=== PATIENT | male | born 1985 | race Caucasian/White ===

== ENCOUNTER 2019-03-15 16:57 | Inpatient (IN) | payer BC ==
[2019-03-15] MEDS ORDERED: NORMAL SALINE 1000 ML 1,000 ML IV ONE ×2 (17:11→22:39)
[2019-03-15] MEDS ORDERED: PANTOPRAZOLE SODIUM 40 MG VIAL IV ONE ×2 (17:16→17:51)
--- NOTE | 2019-03-15 17:21 | ER Document Report ---
ED General - General Stated Complaint: ALTERED MENTAL STATUS Time Seen by Provider: 03/15/19 17:07 - HPI Notes: Patient is a 33-year-old male with a history of alcohol dependence who presents to the emergency department for evaluation after drinking a bottle of isopropyl alcohol. He states his girlfriend removed all of the alcohol from the home, so he drank out alcohol in an effort to become intoxicated. He denies any suicidal or homicidal ideation. He denies any visual or auditory hallucination. He has been a heavy drinker for quite some time, although he will not elaborate on how long. He denies use of any other illicit drugs. - Related Data Allergies/Adverse Reactions: No Known Allergies Allergy (Unverified 03/15/19 19:35) Past Medical History - General Information source: Patient - Social History Smoking Status: Current Some Day Smoker Frequency of alcohol use: Heavy Family History: Reviewed & Not Pertinent Review of Systems - Review of Systems Constitutional: No symptoms reported EENT: No symptoms reported Cardiovascular: No symptoms reported Respiratory: No symptoms reported Gastrointestinal: No symptoms reported Genitourinary: No symptoms reported Musculoskeletal: No symptoms reported Skin: No symptoms reported Neurological/Psychological: See HPI Physical Exam - Vital signs Vitals: Temp Resp BP Pulse Ox 98.4 F 26 H 152/90 H 97 03/15/19 16:59 03/15/19 16:59 03/15/19 16:59 03/15/19 16:59 - Notes Notes: This is a 33-year-old male, clearly intoxicated with slurred speech, but only minimally disheveled. He appears his stated age, no acute distress. Vital signs reviewed, please refer to chart. Head is normocephalic, atraumatic. Pupils equal round, reactive to light. Neck is supple without meningismus. Heart is regular rate and rhythm. Lungs are clear to auscultation bilaterally. Abdomen is soft, nontender, normoactive bowel sounds throughout. Extremities without cyanosis, clubbing. Posterior calves are nontender. Peripheral pulses are equal. Skin is warm and dry. Course - Re-evaluation Re-evalutation: 03/15/19 17:20 Patient presents emergency department for evaluation after ingestion of his peripheral alcohol. Normal overdose labs obtained, in addition to lactic acid. He does have an abnormal EKG so troponin was added as well. He is given IV fluids. Because of the increased risk of hemorrhagic gastritis, I did administer the patient Protonix as well. Will contact poison control shortly, continue to monitor. 03/15/19 22:41 Patient remains tachycardic here, continues to have altered mental status. I talked to him at length about his binge drinking, he states he does wish to seek out counseling for alcohol abstinence. He remains altered. As a result I did order a CT scan of his head, which came back without significant abnormalities. Poison control was contacted. They requested repeat magnesium, repeat lactate. These are ordered. I spoke with Dr. Carpenter, who will admit the patient for further care. - Vital Signs Vital signs: Temp Pulse Resp BP Pulse Ox 98.4 F 21 H 126/80 H 99 03/15/19 16:59 03/15/19 19:01 03/15/19 19:00 03/15/19 19:01 - Laboratory Result Diagrams: 03/15/19 18:40 03/15/19 18:40 Laboratory results interpreted by me: 03/15/19 03/15/19 03/15/19 18:21 18:40 18:40 WBC 12.1 H [place] % (Auto) 2.1 L Absolute Neuts (auto) 9.3 H Glucose 127 H Lactic Acid Magnesium Urine Protein 30 H Urine Ketones 20 H Salicylates < 1.0 L Acetaminophen < 10 L 03/15/19 03/15/19 18:40 18:40 WBC [place] % (Auto) Absolute Neuts (auto) Glucose Lactic Acid 3.1 H Magnesium 2.4 H Urine Protein Urine Ketones Salicylates Acetaminophen - EKG Interpretation by Me Additional EKG results interpreted by me: 03/15/19 17:21 Sinus tachycardia with a rate of 113 bpm. Normal axis. Borderline prolonged QT interval with a QTC of 483. Nonspecific ST changes, as well as T wave inversions in anteroseptal leads. There are no available studies for comparison. Discharge - Discharge Clinical Impression: Isopropyl alcohol ingestion, Lactic acidosis Alcohol dependence Qualifiers: Substance use status: other alcohol-induced disorder Qualified Code(s): F10.288 - Alcohol dependence with other alcohol-induced disorder Altered mental status Qualifiers: Altered mental status type: unspecified Qualified Code(s): R41.82 - Altered mental status, unspecified Condition: Stable Disposition: ADMITTED INPATIENT Admitting Provider: Jayden (Hospitalist) Unit Admitted: ICU
--- NOTE | 2019-03-15 17:36 | EKG REPORT ---
SEVERITY:- BORDERLINE ECG - SINUS TACHYCARDIA BORDERLINE PROLONGED QT INTERVAL : Confirmed by: Aixa Fitch MD 15-Mar-2019 17:35:36
[2019-03-15] MEDS ORDERED: PANTOPRAZOLE SODIUM 80 MG in NORMAL SALINE 100 ML IV ONE (18:30)
[2019-03-15 18:37] LABS: APPEARANCE,URINE CLEAR; BILIRUBIN,URINE NEGATIVE (NEGATIVE); COLOR,URINE YELLOW; GLUCOSE, URINE NEGATIVE (NEGATIVE); KETONES,URINE 20 mg/dL (NEGATIVE); LEUKOCYTE ESTERASE,URINE NEGATIVE (NEGATIVE); NITRITE,URINE NEGATIVE (NEGATIVE); PROTEIN,URINE 30 mg/dL (NEGATIVE); UROBILINOGEN,URINE NEGATIVE mg/dL (<2.0)
[2019-03-15 18:51] LABS: URINE AMPHETAMINES SCREEN NEGATIVE; URINE BARBITURATES SCREEN NEGATIVE; URINE BENZODIAZEPINES SCREEN NEGATIVE; URINE COCAINE SCREEN NEGATIVE; URINE MARIJUANA (THC) SCREEN NEGATIVE; URINE METHADONE SCREEN NEGATIVE; URINE PHENCYCLIDINE SCREEN NEGATIVE
[2019-03-15 18:53] LABS: ABSOLUTE BASOPHILS # (AUTO) 0.1 10^3/uL (0.0-0.2); ABSOLUTE LYMPHOCYTES (AUTO) 2.5 10^3/uL (0.5-4.7); ABSOLUTE MONOCYTES (AUTO) 0.3 10^3/uL (0.1-1.4); ABSOLUTE NEUT (AUTO) 9.3 10^3/uL (1.7-8.2); BASOPHILS % (AUTO) 0.8 % (0-2); EOSINOPHILS % (AUTO) 0.1 % (0-6); HEMATOCRIT 47.1 % (37.9-51.0); HEMOGLOBIN 16.1 g/dL (13.5-17.0); LYMPHOCYTES % (AUTO) 20.6 % (13-45); MEAN CORPUSCULAR HEMOGLOBIN 31.4 pg (27.0-33.4); MEAN CORPUSCULAR HGB CONC 34.1 g/dL (32.0-36.0); MEAN CORPUSCULAR VOLUME 92 fl (80-97); MONOCYTES % (AUTO) 2.1 % (3-13); RED BLOOD COUNT 5.12 10^6/uL (4.35-5.55); SEGMENTED NEUTROPHILS % (AUTO) 76.4 % (42-78); TOTAL CELLS COUNTED % (AUTO) 100 %; WHITE BLOOD COUNT 12.1 10^3/uL (4.0-10.5)
[2019-03-15 19:08] LABS: ACETAMINOPHEN < 10 ug/mL (10-30); ALBUMIN 4.9 g/dL (3.5-5.0); ALCOHOL < 10 mg/dL (NONE DETECTED); ALKALINE PHOSPHATASE 56 U/L (38-126); ANION GAP 15 (5-19); ASPARTATE AMINO TRANSFERASE 47 U/L (17-59); BILIRUBIN,DIRECT 0.2 mg/dL (0.0-0.4); BILIRUBIN,TOTAL 0.4 mg/dL (0.2-1.3); BLOOD UREA NITROGEN 10 mg/dL (7-20); CALCIUM 9.1 mg/dL (8.4-10.2); CARBON DIOXIDE 26 mmol/L (22-30); CHLORIDE 104 mmol/L (98-107); GLUCOSE 127 mg/dL (75-110); SALICYLATE < 1.0 mg/dL (2.0-20.0); TOTAL PROTEIN 7.8 g/dL (6.3-8.2)
[2019-03-15 19:11] LABS: PLATELET COUNT 285 10^3/uL (150-450)
[2019-03-15] MEDS ORDERED: LORAZEPAM INJ 2 MG/1 ML VIAL IV ONE (20:41)
[2019-03-15] MEDS ORDERED: LORAZEPAM INJ 2 MG/1 ML VIAL ONE (21:08)
--- NOTE | 2019-03-15 22:28 | RADIOLOGY REPORT (SQ) ---
EXAM DESCRIPTION: [facility]: CT HEAD WITHOUT IV CONTRAST CLINICAL HISTORY: 33 years Male; AMS, alcoholic TECHNIQUE: Noncontrast CT head. All CT scans at this facility use dose modulation, iterative reconstruction, and/or weight based dosing when appropriate to reduce radiation dose to as low as reasonably achievable. COMPARISON: None. FINDINGS: Acevedo matter, white matter, ventricles, and cisterns are within normal limits. No acute hemorrhage or mass effect. Visualized portions of paranasal sinuses and mastoids are clear. Visualized portions of the calvarium are within normal limits. IMPRESSION: 1. No acute intracranial findings.
[2019-03-16] MEDS ORDERED: MAG HYDROX/AL HYDROX/SIMETH SUSP 30 ML UDCUP PO PRN (00:10)
[2019-03-16] MEDS ORDERED: MAGNESIUM HYDROXIDE SUSP 30 ML UDCUP PO PRN (00:10)
[2019-03-16] MEDS ORDERED: ONDANSETRON HCL INJ/PF 4 MG/2 ML SDV IV PRN (00:10)
[2019-03-16] MEDS ORDERED: RINGERS SOLUTION,LACTATED 1,000 ML IV PRN (00:10)
[2019-03-16] MEDS ORDERED: NALBUPHINE HCL INJ 10 MG/1 ML AMPULE IV PRN (00:20)
[2019-03-16] MEDS ORDERED: NICOTINE 21 MG/24 HR PATCH.TD24 TD PRN (00:20)
[2019-03-16] MEDS ORDERED: ACETAMINOPHEN 325 MG TABLET PO PRN (00:20)
[2019-03-16] MEDS ORDERED: CHLORPROMAZINE HCL INJ 25 MG/1 ML AMPULE IV PRN (00:20)
[2019-03-16] MEDS ORDERED: DIAZEPAM INJ 10 MG/2 ML DISP.SYRIN IV PRN (00:20)
[2019-03-16 00:56] LABS: VENOUS BLOOD BASE EXCESS 1.6 mmol/L; VENOUS BLOOD HCO3 24.9 mmol/L (20-32); VENOUS BLOOD PCO2 35.1 mmHg (35-63); VENOUS BLOOD PH 7.47 (7.30-7.42)
[2019-03-16 01:13] LABS: ANION GAP 9 (5-19); BLOOD UREA NITROGEN 9 mg/dL (7-20); CALCIUM 8.6 mg/dL (8.4-10.2); CARBON DIOXIDE 26 mmol/L (22-30); CHLORIDE 106 mmol/L (98-107); GLUCOSE 132 mg/dL (75-110)
[2019-03-16] MEDS: METOPROLOL TARTRATE PF/INJ 5 MG/5 ML SDV IV SCH (02:25)
[2019-03-16] MEDS ORDERED: METOPROLOL TARTRATE 100 MG TABLET PO ONE (02:47)
--- NOTE | 2019-03-16 02:56 | PDOC H&P ---
History of Present Illness Admission Date/PCP: 03/15/19 22:51 No PCP Patient complains of: Isopropyl alcohol ingestion History of Present Illness: CONSTANCE MEJÍA is a 33 year old male who presented to the emergency room after ingesting a large bottle of isopropyl alcohol. He purposely ingested the alcohol in an attempt to become intoxicated but did not have any intent to injure himself. He is known to have a binge drinking problem with ethyl alcohol and his girlfriend had removed all of the alcohol from the home environment so he decided to drink isopropyl alcohol instead. Though he has been a heavy binge drinker for many years he has never experienced any significant withdrawal ef fects from ethyl alcohol. He admits mental confusion and his girlfriend indicates that his alertness and other mental functions are somewhat diminished from his usual baseline. He denies other accompanying or associated symptoms. He denies prior similar episodes. In the ER he was found to have a metabolic acidosis with an elevated lactic acid at 3.1 and a persistent tachycardia in the 120s and persistent hypertension. Patient was subsequently admitted to the ICU for further evaluation and treatment at the recommendation of poison control. Past Medical History Cardiac Medical History: Denies: Coronary Artery Disease, Hypertension Pulmonary Medical History: Denies: Asthma, Chronic Obstructive Pulmonary Disease (COPD) EENT Medical History: Denies: Cataracts, Nose - Allergic rhinitis Neurological Medical History: Denies: Hemorrhagic CVA, Ischemic CVA, Multiple Sclerosis, Seizures Endocrine Medical History: Denies: Diabetes Mellitus Type 1, Diabetes Mellitus Type 2, Hyperthyroidism, Hypothyroidism Renal/ Medical History: Denies: Chronic Kidney Disease, Nephrolithiasis Malignancy Medical History: Reports: None GI Medical History: Denies: Cirrhosis, Crohn's Disease, Gastroesophageal Reflux Disease, Hepatitis, Peptic Ulcer Disease, Ulcerative Colitis Musculoskeltal Medical History: Denies: Arthritis, Gout Skin Medical History: Denies: Eczema, Psoriasis Psychiatric Medical History: Reports: Alcohol Dependency, Tobacco Dependency Denies: Substance Abuse Traumatic Medical History: Reports: None Hematology: Denies: Anemia, Bleeding Tendencies Infectious Medical History: Reports: None Past Surgical History Past Surgical History: Reports: None Social History Information Source: Patient Lives with: Spouse/Significant other Smoking Status: Current Some Day Smoker - Rarely smokes Frequency of Alcohol Use: Heavy - Binge drinks to excess. Hx Recreational Drug Use: No Drugs: None Hx Prescription Drug Abuse: No - Advance Directive Resuscitation Status: Full Code Family History Family History: denies: CAD, DM, Hypertension, Malignancy Parental Family History Reviewed: Yes Children Family History Reviewed: No Sibling(s) Family History Reviewed.: Yes Medication/Allergy Allergies/Adverse Reactions: No Known Allergies Allergy (Unverified 03/15/19 19:35) Review of Systems Review of Systems: Patient admits to some confusion and slowness in his mental processes. Is uncertain as to whether or not he is able to provide full and accurate information for his review of systems but his information provided is given below. Constitutional: ABSENT: chills, fever(s) Eyes: ABSENT: visual disturbances, other - Eye pain Ears: ABSENT: hearing changes, other - Ear pain Nose, Mouth, and Throat: ABSENT: mouth pain, sore throat Cardiovascular: ABSENT: chest pain, palpitations Respiratory: ABSENT: cough, dyspnea Gastrointestinal: ABSENT: abdominal pain, constipation, diarrhea, nausea, vomiting Genitourinary: ABSENT: dysuria, hematuria Musculoskeletal: ABSENT: back pain, joint swelling, muscle weakness Integumentary: ABSENT: pruritus, rash Neurological: PRESENT: as per HPI, confusion. ABSENT: convulsions, focal weakness, memory loss, syncope Psychiatric: ABSENT: anxiety, depression Endocrine: ABSENT: cold intolerance, heat intolerance Hematologic/Lymphatic: ABSENT: easy bleeding, easy bruising Allergic/Immunologic: ABSENT: seasonal rhinorrhea Physical Exam Vital Signs: Temp Pulse Resp BP Pulse Ox 98.4 F 21 H 126/80 H 99 03/15/19 16:59 03/15/19 19:01 03/15/19 19:00 03/15/19 19:01 Intake & Output 03/13/19 03/14/19 03/15/19 23:59 23:59 23:59 Intake Total 1000 Balance 1000 Weight 83.1 kg General appearance: PRESENT: no acute distress, cooperative, other - Patient seems somewhat slow in his responsiveness and is easily confused Head exam: PRESENT: atraumatic, normocephalic Eye exam: PRESENT: conjunctiva pink. ABSENT: conjunctival injection, nystagmus, scleral icterus Ear exam: PRESENT: normal external ear exam. ABSENT: bleeding, drainage Mouth exam: PRESENT: dry mucosa, neck supple Neck exam: ABSENT: JVD, thyromegaly, tracheal deviation Respiratory exam: PRESENT: clear to auscultation des, symmetrical, unlabored Cardiovascular exam: PRESENT: RRR, tachycardia. ABSENT: clicks, gallop, rubs Pulses: PRESENT: normal radial pulses, normal dorsalis pedis pul Vascular exam: PRESENT: normal capillary refill. ABSENT: pallor GI/Abdominal exam: PRESENT: normal bowel sounds, soft Rectal exam: PRESENT: deferred Extremities exam: ABSENT: joint swelling, pedal edema, tenderness Musculoskeletal exam: PRESENT: full ROM, normal inspection Neurological exam: PRESENT: altered - Mentally dull, frequently confused when trying to express his thoughts or answer questions., oriented to person, oriented to place, oriented to time, CN II-XII grossly intact. ABSENT: motor sensory deficit Psychiatric exam: PRESENT: depressed - Dull/depressed mood, flat affect Skin exam: PRESENT: dry, intact, warm. ABSENT: jaundice, rash, urticaria Results Laboratory Results: 03/15/19 18:40 03/15/19 22:55 03/15/19 03/15/19 03/15/19 18:21 18:40 18:40 WBC 12.1 H RBC 5.12 Hgb 16.1 Hct 47.1 MCV 92 MCH 31.4 MCHC 34.1 RDW 13.0 Plt Count 285 Seg Neutrophils % 76.4 Sodium 144.5 Potassium 4.0 Chloride 104 Carbon Dioxide 26 Anion Gap 15 BUN 10 Creatinine 0.93 Est GFR ( Amer) > 60 Glucose 127 H Lactic Acid Calcium 9.1 Magnesium Total Bilirubin 0.4 AST 47 Alkaline Phosphatase 56 Total Protein 7.8 Albumin 4.9 Urine Color YELLOW Urine Appearance CLEAR Urine pH 6.0 Ur Specific [place] 1.010 Urine Protein 30 H Urine Glucose (UA) NEGATIVE Urine Ketones 20 H Urine Blood NEGATIVE Urine Nitrite NEGATIVE Ur Leukocyte Esterase NEGATIVE Urine WBC (Auto) 1 Urine RBC (Auto) 0 03/15/19 03/15/19 03/15/19 18:40 18:40 22:55 WBC RBC Hgb Hct MCV MCH MCHC RDW Plt Count Seg Neutrophils % Sodium Potassium 4.0 Chloride Carbon Dioxide Anion Gap BUN Creatinine Est GFR ( Amer) Glucose Lactic Acid 3.1 H Calcium Magnesium 2.4 H 2.2 Total Bilirubin AST Alkaline Phosphatase Total Protein Albumin Urine Color Urine Appearance Urine pH Ur Specific [place] Urine Protein Urine Glucose (UA) Urine Ketones Urine Blood Urine Nitrite Ur Leukocyte Esterase Urine WBC (Auto) Urine RBC (Auto) 03/15/19 22:55 WBC RBC Hgb Hct MCV MCH MCHC RDW Plt Count Seg Neutrophils % Sodium Potassium Chloride Carbon Dioxide Anion Gap BUN Creatinine Est GFR ( Amer) Glucose Lactic Acid 1.8 Calcium Magnesium Total Bilirubin AST Alkaline Phosphatase Total Protein Albumin Urine Color Urine Appearance Urine pH Ur Specific [place] Urine Protein Urine Glucose (UA) Urine Ketones Urine Blood Urine Nitrite Ur Leukocyte Esterase Urine WBC (Auto) Urine RBC (Auto) 03/15/19 20:38 Troponin I < 0.012 Impressions: Head CT 03/15/19 20:40 IMPRESSION: 1. No acute intracranial findings. Assessment and Plan - Diagnosis (1) Isopropyl alcohol poisoning Is this a current diagnosis for this admission?: Yes Plan: Patient will be admitted to the ICU and followed closely with metabolic profiles, magnesium and lactate levels every 4 hours X 3. He will be treated with high volume IV fluids and will otherwise receive supportive and symptomatic care for any nausea vomiting or pain he might have. Nausea and vomiting be treated with Zofran 4 mg IV every 4 hours on an as needed basis and pain will be treated with Nubain 10 mg IV every 3 hours on an as needed basis. (2) Hypertension Qualifiers: Hypertension type: unspecified Qualified Code(s): I10 - Essential (primary) hypertension Is this a current diagnosis for this admission?: Yes Plan: Patient's hypertension and tachycardia will be treated with metoprolol 5 mg IV every 5 minutes x 3 doses initially followed by oral metoprolol tartrate 100 mg every 8 hours. Further intervention will be considered if required. (3) Tachycardia Is this a current diagnosis for this admission?: Yes Plan: Patient's hypertension and tachycardia will be treated with metoprolol 5 mg IV every 5 minutes x 3 doses initially followed by oral metoprolol tartrate 100 mg every 8 hours. Further intervention will be considered if required. (4) Metabolic acidosis Is this a current diagnosis for this admission?: Yes Plan: Patient's metabolic acidosis will be treated with IV fluids and close monitoring of his metabolic status with VBGs as required. - Time Time Spent with patient: 15-24 minutes Medications reviewed and adjusted accordingly: Yes Anticipated discharge: Home - Inpatient Certification Based on my medical assessment, after consideration of the patient's comorbidities, presenting symptoms, or acuity I expect that the services needed warrant INPATIENT care.: Yes I certify that my determination is in accordance with my understanding of Medicare's requirements for reasonable and necessary INPATIENT services [42 CFR 412.3e].: Yes
[2019-03-16 04:39] LABS: ANION GAP 9 (5-19); BLOOD UREA NITROGEN 10 mg/dL (7-20); CALCIUM 8.5 mg/dL (8.4-10.2); CARBON DIOXIDE 28 mmol/L (22-30); CHLORIDE 105 mmol/L (98-107); GLUCOSE 115 mg/dL (75-110); POTASSIUM 3.6 mmol/L (3.6-5.0)
[2019-03-16 04:56] LABS: FREE T4 (FREE THYROXINE) 0.65 ng/dL (0.78-2.19)
[2019-03-16 04:57] LABS: FREE T3 2.98 pg/mL (2.77-5.27)
[2019-03-16 05:10] LABS: THYROID STIMULATING HORMONE 0.74 uIU/mL (0.47-4.68)
[2019-03-16] MEDS: HEPARIN SOD (PORCINE) 5,000 UNIT/ML 1 ML VIAL SUBCUT SCH ×3 (06:07→21:20)
[2019-03-16] MEDS: PANTOPRAZOLE SODIUM 40 MG TABLET.DR PO SCH ×2 (06:07→16:08)
[2019-03-16 07:47] LABS: VENOUS BLOOD BASE EXCESS 2.8 mmol/L; VENOUS BLOOD PH 7.45 (7.30-7.42)
[2019-03-16 08:15] LABS: ANION GAP 9 (5-19); BLOOD UREA NITROGEN 8 mg/dL (7-20); CALCIUM 8.4 mg/dL (8.4-10.2); CARBON DIOXIDE 25 mmol/L (22-30); CHLORIDE 106 mmol/L (98-107); GLUCOSE 116 mg/dL (75-110); POTASSIUM 3.8 mmol/L (3.6-5.0)
--- NOTE | 2019-03-16 09:03 | EKG REPORT ---
SEVERITY:- BORDERLINE ECG - SINUS TACHYCARDIA BORDERLINE PROLONGED QT INTERVAL : Confirmed by: Aixa Fitch MD 16-Mar-2019 09:02:29
[2019-03-16] MEDS: METOPROLOL TARTRATE 50 MG TABLET PO SCH ×3 (09:12→21:20)
[2019-03-16] MEDS: DOCUSATE SODIUM 100 MG CAPSULE PO SCH ×2 (10:19→17:32)
--- NOTE | 2019-03-16 11:35 | PDOC PROGRESS REPORT ---
Subjective Progress Note for:: 03/16/19 Subjective:: Feeling better but still anxious. He reports left upper quadrant pain. Reason For Visit: ACUTE ISOPROPYL ALCOHOL POISONING SECONDARY TO Physical Exam Vital Signs: Temp Pulse Resp BP Pulse Ox 98.2 F 58 L 23 H 130/96 H 96 03/16/19 08:00 03/16/19 10:00 03/16/19 10:00 03/16/19 10:00 03/16/19 10:00 Intake & Output 03/15/19 03/16/19 03/17/19 06:59 06:59 06:59 Intake Total 2052 240 Balance 2052 240 Weight 83.1 kg General appearance: PRESENT: no acute distress, cooperative, well-developed Head exam: PRESENT: atraumatic, normocephalic Eye exam: PRESENT: conjunctiva pink, EOMI. ABSENT: scleral icterus Ear exam: PRESENT: normal external ear exam. ABSENT: bleeding, drainage Mouth exam: PRESENT: moist, tongue midline Teeth exam: ABSENT: dental tenderness, poor dentation Respiratory exam: PRESENT: clear to auscultation des, symmetrical, unlabored. ABSENT: rales, rhonchi, tachypnea, wheezes Cardiovascular exam: PRESENT: RRR, +S1, +S2. ABSENT: diastolic murmur, systolic murmur GI/Abdominal exam: PRESENT: normal bowel sounds, soft, tenderness - Left upper quadrant. ABSENT: distended Rectal exam: PRESENT: deferred Extremities exam: ABSENT: joint swelling, pedal edema, tenderness Musculoskeletal exam: PRESENT: full ROM, normal inspection. ABSENT: deformity Neurological exam: PRESENT: alert, awake, oriented to person, oriented to place, oriented to time, oriented to situation, CN II-XII grossly intact Psychiatric exam: PRESENT: anxious, flat affect. ABSENT: agitated Focused psych exam: ABSENT: delusional, restlessness Skin exam: PRESENT: dry, normal color, warm. ABSENT: rash Results Laboratory Results: 03/15/19 18:40 03/16/19 07:19 03/15/19 03/15/19 03/15/19 18:21 18:40 18:40 WBC 12.1 H RBC 5.12 Hgb 16.1 Hct 47.1 MCV 92 MCH 31.4 MCHC 34.1 RDW 13.0 Plt Count 285 Seg Neutrophils % 76.4 VBG pH VBG pCO2 VBG HCO3 VBG Base Excess Sodium 144.5 Potassium 4.0 Chloride 104 Carbon Dioxide 26 Anion Gap 15 BUN 10 Creatinine 0.93 Est GFR ( Amer) > 60 Glucose 127 H Lactic Acid Calcium 9.1 Phosphorus Magnesium Total Bilirubin 0.4 AST 47 Alkaline Phosphatase 56 Total Protein 7.8 Albumin 4.9 TSH Free T4 Free T3 pg/mL Urine Color YELLOW Urine Appearance CLEAR Urine pH 6.0 Ur Specific [place] 1.010 Urine Protein 30 H Urine Glucose (UA) NEGATIVE Urine Ketones 20 H Urine Blood NEGATIVE Urine Nitrite NEGATIVE Ur Leukocyte Esterase NEGATIVE Urine WBC (Auto) 1 Urine RBC (Auto) 0 03/15/19 03/15/19 03/15/19 18:40 18:40 22:55 WBC RBC Hgb Hct MCV MCH MCHC RDW Plt Count Seg Neutrophils % VBG pH VBG pCO2 VBG HCO3 VBG Base Excess Sodium Potassium 4.0 Chloride Carbon Dioxide Anion Gap BUN Creatinine Est GFR ( Amer) Glucose Lactic Acid 3.1 H Calcium Phosphorus Magnesium 2.4 H 2.2 Total Bilirubin AST Alkaline Phosphatase Total Protein Albumin TSH Free T4 Free T3 pg/mL Urine Color Urine Appearance Urine pH Ur Specific [place] Urine Protein Urine Glucose (UA) Urine Ketones Urine Blood Urine Nitrite Ur Leukocyte Esterase Urine WBC (Auto) Urine RBC (Auto) 03/15/19 03/16/19 03/16/19 22:55 00:35 00:35 WBC RBC Hgb Hct MCV MCH MCHC RDW Plt Count Seg Neutrophils % VBG pH 7.47 H VBG pCO2 35.1 VBG HCO3 24.9 VBG Base Excess 1.6 Sodium 141.4 Potassium 4.0 Chloride 106 Carbon Dioxide 26 Anion Gap 9 BUN 9 Creatinine 0.85 Est GFR ( Amer) > 60 Glucose 132 H Lactic Acid 1.8 Calcium 8.6 Phosphorus Magnesium 2.1 Total Bilirubin AST Alkaline Phosphatase Total Protein Albumin TSH Free T4 Free T3 pg/mL Urine Color Urine Appearance Urine pH Ur Specific [place] Urine Protein Urine Glucose (UA) Urine Ketones Urine Blood Urine Nitrite Ur Leukocyte Esterase Urine WBC (Auto) Urine RBC (Auto) 03/16/19 03/16/19 03/16/19 00:35 00:35 04:06 WBC RBC Hgb Hct MCV MCH MCHC RDW Plt Count Seg Neutrophils % VBG pH VBG pCO2 VBG HCO3 VBG Base Excess Sodium 141.9 Potassium 3.6 Chloride 105 Carbon Dioxide 28 Anion Gap 9 BUN 10 Creatinine 0.87 Est GFR ( Amer) > 60 Glucose 115 H Lactic Acid 1.0 Calcium 8.5 Phosphorus 3.3 Magnesium 2.2 Total Bilirubin AST Alkaline Phosphatase Total Protein Albumin TSH Free T4 Free T3 pg/mL Urine Color Urine Appearance Urine pH Ur Specific [place] Urine Protein Urine Glucose (UA) Urine Ketones Urine Blood Urine Nitrite Ur Leukocyte Esterase Urine WBC (Auto) Urine RBC (Auto) 03/16/19 03/16/19 03/16/19 04:06 04:06 04:06 WBC RBC Hgb Hct MCV MCH MCHC RDW Plt Count Seg Neutrophils % VBG pH Cancelled VBG pCO2 Cancelled VBG HCO3 Cancelled VBG Base Excess Cancelled Sodium Potassium Chloride Carbon Dioxide Anion Gap BUN Creatinine Est GFR ( Amer) Glucose Lactic Acid 2.3 H Calcium Phosphorus Magnesium Total Bilirubin AST Alkaline Phosphatase Total Protein Albumin TSH 0.74 Free T4 0.65 L Free T3 pg/mL 2.98 Urine Color Urine Appearance Urine pH Ur Specific [place] Urine Protein Urine Glucose (UA) Urine Ketones Urine Blood Urine Nitrite Ur Leukocyte Esterase Urine WBC (Auto) Urine RBC (Auto) 03/16/19 03/16/19 03/16/19 07:19 07:19 08:43 WBC RBC Hgb Hct MCV MCH MCHC RDW Plt Count Seg Neutrophils % VBG pH 7.45 H VBG pCO2 40.0 VBG HCO3 27.0 VBG Base Excess 2.8 Sodium 139.7 Potassium 3.8 Chloride 106 Carbon Dioxide 25 Anion Gap 9 BUN 8 Creatinine 0.79 Est GFR ( Amer) > 60 Glucose 116 H Lactic Acid 0.8 Calcium 8.4 Phosphorus Magnesium 2.2 Total Bilirubin AST Alkaline Phosphatase Total Protein Albumin TSH Free T4 Free T3 pg/mL Urine Color Urine Appearance Urine pH Ur Specific [place] Urine Protein Urine Glucose (UA) Urine Ketones Urine Blood Urine Nitrite Ur Leukocyte Esterase Urine WBC (Auto) Urine RBC (Auto) 03/15/19 20:38 Troponin I < 0.012 Impressions: Head CT 03/15/19 20:40 IMPRESSION: 1. No acute intracranial findings. Assessment and Plan - Diagnosis (1) Isopropyl alcohol poisoning Is this a current diagnosis for this admission?: Yes Plan: 03/16/2019-the patient during an undisclosed amount of isopropyl alcohol. He was given fluid resuscitation and monitored closely in the intensive care unit. By this morning he was mentating clearly. He will be downgraded and sent to [facility]. He will likely discharge tomorrow. I appreciate psychiatry's evaluation. (2) Hypertension Qualifiers: Hypertension type: unspecified Qualified Code(s): I10 - Essential (primary) hypertension Is this a current diagnosis for this admission?: Yes Plan: 03/16/2019-the patient was hypertensive and tachycardic. He does not report any history of hypertension. This certainly could be effects of the alcohol toxicity. He also has been quite anxious. He is worried about alcohol withdrawal due to his alcohol dependence. I did start him on metoprolol and I would suggest he continue this as an outpatient. (3) Tachycardia Is this a current diagnosis for this admission?: Yes Plan: 03/16/2019-as noted above likely a consequence of the acute medical issue and heightened anxiety with worries about withdrawal. Continue metoprolol. (4) Metabolic acidosis Is this a current diagnosis for this admission?: Yes Plan: 03/16/2019-secondary to the alcohol toxicity. Lactic acid is normal after aggressive fluid resuscitation. (5) Acute encephalopathy Is this a current diagnosis for this admission?: Yes Plan: 03/16/2019-secondary to the acute alcohol toxicity. The patient was mentating clearly this morning. Encephalopathy resolved. - Time Time Spent with patient: 15-24 minutes Medications reviewed and adjusted accordingly: Yes Anticipated discharge: Home Within: within 24 hours - Plan Summary Plan Summary: During the encounter I reviewed with the patient the fact that many people with alcoholism are self-medicating for depression, stress and anxiety. He reported that there is a lot of stress currently in his life. I stated that he would benefit from being seen by psychiatry. In addition to providing information for outpatient treatment for substance abuse he certainly could benefit from charlee goel and possibly referral to a therapist. I told him that he would benefit from stress management. 1 of the issues is lack of physical activity. He used to exercise regularly. He does not anymore. He clearly notices that he is much more stressed without the physical outside of exercise. I strongly encouraged that he stop taking any alcohol and begin an exercise regimen. He did agree to have psychiatry evaluate him.
[2019-03-16] MEDS ORDERED: LORAZEPAM 1 MG TABLET PO ONE (12:00)
--- NOTE | 2019-03-16 14:54 | PSYCHOLOGICAL NOTE ---
Psych Note - Psych Note Date seen by psych provider: 03/16/19 Time seen by psych provider: 11:55 Psych Note: Reason for Consult: drank rubbing alcohol Consent permissions: Patient's significant otherYocasta [phone] Patient is a 33-year-old male with a history of alcohol dependence who presents to the emergency department for evaluation after drinking a bottle of isopropyl alcohol. Patient reports that he ran out of alcohol at home so decided to drink rubbing alcohol; He reports now that he realizes that it was a bad idea. E denies this was an intent to harm himself and states he is interested in sobriety. Patient denies thoughts of wanting to harm himself or others and denies having any difficulty seeing or hearing things that confuse her scare him. Patient denies having history of mental health other than substance abuse i.e. alcohol use disorder. Patient states he has been drinking for a very long time; he was unable to give specific timeframe. Clinician attempted to contact patient's significant other, Yocasta. Voicemail box is not set up. Patient is alert and orientated to person, place, time and circumstance. Mood is euthymic with congruent affect as evidenced by smiling engaging with clinician. Patient denies suicidal and homicidal ideation. Delusions are absent behaviors congruent with an intact reality based presentation i.e. organized and linear thought process. Eye contact was well-maintained. Conversational speech is within normal rate, tone and prosody. Intellectual abilities appear to be within the average range. Attention and concentration are currently good. Insight, judgment, impulse control are fair. Alcohol use disorder; moderate to severe No medication recommendations at this time Impression\plan: Patient is cleared from acute psychiatric services. Patient does not meet IVC criteria per [place] GS 120 2C. Patient discloses intentionally drinking rubbing alcohol when running out of alcohol in his home. He denies this was an attempt to harm himself rather to them get intoxicated. Patient would like information on of achieving and maintaining sobriety. Please contact the behavioral health team prior to discharge so resource information can be provided with discharge paperwork. Dr. Marks was consulted to care management this patient; attending physicians in agreement with augmentations and disposition
[2019-03-16 23:01] VITALS: BP 121/77
[2019-03-17 04:05] LABS: HEMATOCRIT 44.4 % (37.9-51.0); HEMOGLOBIN 15.2 g/dL (13.5-17.0); MEAN CORPUSCULAR HEMOGLOBIN 31.6 pg (27.0-33.4); MEAN CORPUSCULAR HGB CONC 34.3 g/dL (32.0-36.0); MEAN CORPUSCULAR VOLUME 92 fl (80-97); PLATELET COUNT 200 10^3/uL (150-450); RED BLOOD COUNT 4.82 10^6/uL (4.35-5.55); RED CELL DISTRIBUTION WIDTH 13.1 % (11.5-14.0); WHITE BLOOD COUNT 4.6 10^3/uL (4.0-10.5)
[2019-03-17 04:21] LABS: ALBUMIN 4.4 g/dL (3.5-5.0); ALKALINE PHOSPHATASE 50 U/L (38-126); ANION GAP 8 (5-19); ASPARTATE AMINO TRANSFERASE 43 U/L (17-59); BILIRUBIN,DIRECT 0.2 mg/dL (0.0-0.4); BILIRUBIN,TOTAL 0.4 mg/dL (0.2-1.3); BLOOD UREA NITROGEN 12 mg/dL (7-20); CALCIUM 9.3 mg/dL (8.4-10.2); CARBON DIOXIDE 29 mmol/L (22-30); CHLORIDE 103 mmol/L (98-107); GLUCOSE 96 mg/dL (75-110); TOTAL PROTEIN 6.8 g/dL (6.3-8.2)
[2019-03-17 04:37] LABS: POTASSIUM 4.8 mmol/L (3.6-5.0)
[2019-03-17] MEDS: HEPARIN SOD (PORCINE) 5,000 UNIT/ML 1 ML VIAL SUBCUT SCH (05:33)
[2019-03-17] MEDS: PANTOPRAZOLE SODIUM 40 MG TABLET.DR PO SCH (05:34)
[2019-03-17] MEDS: METOPROLOL TARTRATE 50 MG TABLET PO SCH (05:34)
[2019-03-17] MEDS: DOCUSATE SODIUM 100 MG CAPSULE PO SCH (09:18)
--- NOTE | 2019-03-17 12:03 | PDOC DISCHARGE SUMMARY ---
General - Admit/Disc Date/PCP Admission Date/Primary Care Provider: 03/15/19 22:51 Discharge Date: 03/17/19 - Discharge Diagnosis (1) Isopropyl alcohol poisoning Is this a current diagnosis for this admission?: Yes Summary: The patient came in with acute alcohol poisoning. He ingested a large amount of isopropyl alcohol. When questioned to reports that it was the only alcohol in the house. The patient had an unremarkable hospital course and with hydration and monitoring he recovered without hepatic deficit and without serum chemistry abnormalities. (2) Hypertension Is this a current diagnosis for this admission?: Yes Summary: During his hospitalization he was noted to be hypertensive and tachycardic at times. This could be related to nicotine withdrawal as well as physiologic stress from the acute alcohol toxicity. By the time of discharge the patient's blood pressure had settled. He should follow-up as an outpatient with primary care to get his pressure monitored. He does need to establish with a local physician. I have asked that this appointment be arranged. (3) Tachycardia Is this a current diagnosis for this admission?: Yes Summary: During the initial part of his hospitalization and close monitoring in the ICU t he patient did exhibit tachycardia. Along with his blood pressure this has resolved at the time of discharge. (4) Metabolic acidosis Is this a current diagnosis for this admission?: Yes Summary: Metabolic acidosis was a direct result of the alcohol poisoning. With IV fluids and time this has resolved. (5) Acute encephalopathy Is this a current diagnosis for this admission?: Yes Summary: This was secondary to the acute alcohol toxicity and has resolved. - Additional Information Resuscitation Status: Full Code Discharge Diet: Regular Discharge Activity: Activity As Tolerated, Other - Resume exercise program Home Medications: Nicotine [Nicoderm 21 mg/24 Hr Transderm Patch] 1 each TD DAILYP PRN patch.[email or web address] 03/17/19 History of Present Illness Patient complains of: Confusion after isopropyl alcohol ingestion History of Present Illness: CONSTANCE MEJÍA is a 33 year old male who has a history of alcoholism and binge drinking. All of the alcoholic beverages were removed from his house. He reports that in an attempt to become intoxicated he in fact drank large amount of isopropyl alcohol. This was not an attempt at self-harm. His evaluation revealed a metabolic acidosis with anion gap, some confusion and tachycardia. The emergency department reviewed specifics with poison control and conservative care was suggested. He was referred to the hospital service for admission. Hospital Course Hospital Course: The patient had a benign hospital course. With fluids and metabolism of the alcohol the patient recovered fully. I did specifically questioned him about his alcoholism. He states that much of it is from stress. He used to exercise regularly and has not been doing this. He states that he feels the effects and self treats with alcohol. He denied any elisa depression but I did have psychiatry see the patient. Physical Exam Vital Signs: Temp Pulse Resp BP Pulse Ox 97.7 F 80 18 121/77 100 03/16/19 23:00 03/17/19 04:16 03/16/19 23:00 03/16/19 23:00 03/16/19 23:00 Intake & Output 03/16/19 03/17/19 03/18/19 06:59 06:59 06:59 Intake Total 2052 4020 Output Total 3500 Balance 2052 520 Weight 83.1 kg 83.4 kg General appearance: PRESENT: no acute distress, cooperative, well-developed Head exam: PRESENT: atraumatic, normocephalic Eye exam: PRESENT: conjunctiva pink, EOMI. ABSENT: scleral icterus Ear exam: PRESENT: normal external ear exam. ABSENT: bleeding, drainage Respiratory exam: PRESENT: clear to auscultation des, symmetrical, unlabored. ABSENT: accessory muscle use, rales, rhonchi, tachypnea, wheezes Cardiovascular exam: PRESENT: RRR, +S1, +S2 GI/Abdominal exam: PRESENT: normal bowel sounds, soft. ABSENT: distended, guarding, tenderness Rectal exam: PRESENT: deferred Neurological exam: PRESENT: alert, awake, oriented to person, oriented to place, oriented to time, oriented to situation, CN II-XII grossly intact Psychiatric exam: PRESENT: appropriate affect, other - He did exhibit insight into the poor decision making regarding his recent [place] and current situation.. ABSENT: agitated, anxious, suicidal ideation Focused psych exam: ABSENT: delusional, restlessness Skin exam: PRESENT: dry, normal color, warm. ABSENT: rash Results Laboratory Results: 03/17/19 03:34 03/17/19 03:34 03/17/19 03/17/19 03:34 03:34 WBC 4.6 RBC 4.82 Hgb 15.2 Hct 44.4 MCV 92 MCH 31.6 MCHC 34.3 RDW 13.1 Plt Count 200 Sodium 140.2 Potassium 4.8 D Chloride 103 Carbon Dioxide 29 Anion Gap 8 BUN 12 Creatinine 0.94 Est GFR ( Amer) > 60 Glucose 96 Calcium 9.3 Total Bilirubin 0.4 AST 43 Alkaline Phosphatase 50 Total Protein 6.8 Albumin 4.4 03/15/19 20:38 Troponin I < 0.012 Impressions: Head CT 03/15/19 20:40 IMPRESSION: 1. No acute intracranial findings. Qualifiers - * PATIENT BEING DISCHARGED WITH ANY OF THE FOLLOWING DIAGNOSIS: No Acute Heart Failure - Is this a Heart Failure Patient?: No Plan Discharge Plan: I did asked the staff to provide information regarding alcohol support groups and psychiatric services. I did strongly encourage the patient to participate in some form of counseling and or a substance abuse recovery program. I also explained how important it was to have a primary care physician and he should establish with one locally not on to follow-up for the blood pressure and hypertension exhibited during this admission but also general health and well-being. Time Spent: Greater than 30 Minutes
== END 2019-03-17 13:07 | disposition home or self-care (01) | DRG 917 ==
LOC: ER 16:57 → EH 22:51 → ICU 03-16 01:42 → 5 03-16 22:38
PROVIDERS: ADMIT Emergency Medicine; ATTEND Emergency Medicine
DX: T51.2X1A Toxic effect of 2-Propanol, accidental (unintentional), initial encounter (principal); G92 Toxic encephalopathy; E87.2 Acidosis; F10.20 Alcohol dependence, uncomplicated; F17.200 Nicotine dependence, unspecified, uncomplicated; R00.0 Tachycardia, unspecified; I10 Essential (primary) hypertension; Z82.49 Family history of ischemic heart disease and other diseases of the circulatory system; Z83.3 Family history of diabetes mellitus; Y92.009 Unspecified place in unspecified non-institutional (private) residence as the place of occurrence of the external cause
CPT/HCPCS: 36415; 70450; 80048; 80053; 80307; 81001; 82803; 83605; 83735; 84100; 84132; 84439; 84443; 84481; 84484; 85025; 85027; 93005; 93010; 96361; 96374; 96375; 99285; J2060; J3360; J7030; J7050; J7120; S0164